=== PATIENT | female | born 1955 | race Caucasian/White ===

== ENCOUNTER → 2017-06-13 | Outpatient (CLI) | payer BC ==
[~2017-06-13] MED LIST: ASPIRIN ENTERI325 M1 PO; CIPRO PO; CITRACAL PLUS T1 TAB PO; COREG PO; VIT B12 PO; VITAL-D RX TABL1 TAB PO; WELLBUTRIN XL150 MG PO; WELLBUTRIN75 M1 PO; [UNRECOGNIZED DRUG - OTHER] PO
--- NOTE | ~2017-06-13 | EKG ---
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
[2017-06-13 08:51] LABS: URINE APPEARANCE CLEAR; URINE BILIRUBIN NEG (NEG); URINE BLOOD NEG (NEG); URINE COLOR YELLOW; URINE GLUCOSE NEG (NEG); URINE KETONE NEG (NEG); URINE LEUKOCYTE ESTERASE 2+ (NEG); URINE NITRATE NEG (NEG); URINE PROTEIN NEG (NEG); URINE UROBILINOGEN 0.2 MG/DL (NEG)
[2017-06-13 08:54] LABS: U HYALINE CASTS AUWI 0-2 /[LPF]; URBCS1 AUWI 0-2 /[HPF] (0-2); URINE BACTERIA AUWI NEG (NEGATIVE); URINE SQUAMOUS EPITHELIAL CELL NONE SEEN /[HPF]
[2017-06-13 08:58] LABS: CREATININE SERUM 0.7 mg/dL (0.6-1.4); GLOM FILT RATE Estimated 92.9 mL/min (>60)
[2017-06-13 09:14] LABS: CALCIUM SERUM 8.9 mg/dL (8.4-10.2); POTASSIUM 4.1 mmol/L (3.5-5.1)
[2017-06-13 09:27] LABS: URINE SOURCE CLEAN CATCH
== END | disposition home or self-care (01) ==
LOC: CLAB 08:07
PROVIDERS: Psychiatry & Neurology Psychiatry
DX: F32.9 Major depressive disorder, single episode, unspecified (principal)
CPT/HCPCS: 36415; 80061; 81003; 82310; 82374; 82435; 82565; 82947; 84132; 84295; 84443; 84520; 93005